=== PATIENT | male | born 1980 | race Caucasian/White ===

== ENCOUNTER 2017-10-05 18:58 | Emergency (ER) | payer OTHER ==
[~2017-10-05] VITALS: Ht 170.2 cm; Wt 66.7 kg
[2017-10-05] MEDS ORDERED: SIMVASTATIN5 MG (19:06)
== END 2017-10-05 21:50 | disposition home or self-care (01) ==
LOC: ER 18:58
DX: B34.9 Viral infection, unspecified (principal)